=== PATIENT | male | born 1970 | race Caucasian/White ===

== ENCOUNTER 2017-08-24 19:27 | Emergency (ER) | payer BC, SELFPAY ==
[2017-08-24 19:28] VITALS: BP 138/93; PULSE 89; RESP 16; TEMP 36.2; BMI 25.0
--- NOTE | 2017-08-24 19:38 | ED.DCSUM_ITS ---
- ER Visit Summary Date of Service: 08/24/17 Chief Complaint: Laceration left thumb History of Present Illness: The patient is a 47 M who is right-handed. He presents with injury to his left thumb. This occurred while using a grinding wheel at home. Last tetanus shot was 8 years ago. He denies paresthesia, anesthesia motor weeks. He has no other complaints. Physical Examination: There is a 2 cm laceration radial side left thumb over the proximal phalanx. Capillary refill is normal. Sensation is normal. There is no subungual hematoma. He is able to extend and flex the thumb. He is able to AB duct and adductor thumb. Test Results: None Emergency Department Course and Treatment: The laceration was excised 1% lidocaine. The wound was cleansed and irrigated. Using 5-0 Ethilon simple interrupted sutures were placed. Treatment Plan: Clean wound with peroxide and Q-tip 3 times a day then apply bacitracin ointment. Sutures out in 10 days. Disposition: Discharged to home with spouse in stable improved condition Impression: 2.0 cm laceration left thumb initial encounter This note was generated with [employer] dictation software. It may contain incorrect words, spelling, and punctuation that were not noted in review of the chart prior to signing ED Disposition - Plan for ED Patient: Disposition: Home or Assisted Living Chief Complaint: Laceration Instructions: ED Laceration Hand Referrals: Adan Diaz MD [Primary Care Provider] - 7 Days for suture removal Additional Instructions: Clean wound with peroxide and Q-tip 3 times a day then apply bacitracin ointment
== END 2017-08-24 20:52 | disposition home or self-care (01) ==
PROVIDERS: Emergency Provider Emergency Medicine; Family Provider Family Medicine; PCP Family Medicine
DX: S61.012A Laceration without foreign body of left thumb without damage to nail, initial encounter (principal); W31.89XA Contact with other specified machinery, initial encounter; Y93.9 Activity, unspecified; Y92.9 Unspecified place or not applicable; Y99.9 Unspecified external cause status
CPT/HCPCS: 12001; 99284

== ENCOUNTER 2023-08-07 18:09 | Emergency (ER) | payer BC, SELFPAY ==
[2023-08-07 18:09] VITALS: BP 120/99; PULSE 108; RESP 19; TEMP 36.1; O2SAT 99; BMI 25.8
[2023-08-07 19:00] VITALS: BP 140/97; PULSE 99; RESP 16; O2SAT 98
[2023-08-07 19:08] LABS: Absolute Lymphocyte Count 0.56 X10^3/uL (0.83-4.51); Absolute Neutrophil Count 11.4 X10^3/uL (2.0-7.7); Basophil# 0.04 X10^3/uL; Basophil% 0.3 % (0-1); Eosinophil# 0.15 X10^3/uL; Eosinophils% 1.2 % (0-5); Hematocrit 48.6 % (40-54); Lymphocyte # 0.56 X10^3/ul (0.83-4.51); Lymphocyte % 4.4 % (19-41); Mean Corp Hgb Conc 32.9 g/dL (32-36); Mean Corpuscular Hgb 27.3 pg (27.0-32.0); Mean Corpuscular Volume 82.9 fL (80-94); Monocyte# 0.44 X10^3/uL; Monocyte% 3.5 % (0-10); NRBC Flagged by Analyzer 0 % (0-5); Neutrophil # 11.37 X10^3/uL (2.7-7.7); Neutrophil % 90.3 % (47-70); POSITIVE DIFFERENTIAL YES; Platelet Count 317 K/mm3 (150-450); RBC Distribution Width CV 12.9 % (11.6-14.6); RBC Distribution Width SD 38.8 fl (35.1-43.9); Red Blood Count 5.86 M/mm3 (4.6-6.2); White Blood Count 12.6 K/mm3 (4.4-11.0)
[2023-08-07] MEDS: 0.9% Normal Saline (1000mL) 1,000 ML 1000 ML IV (19:15)
[2023-08-07 19:16] LABS: Differential Indicated SCAN CRITERIA MET
[2023-08-07 19:23] LABS: Bacteria 0 SEEN /hpf (None Seen); Red Blood Cells-Urine 0 SEEN /hpf (0-5); White Blood Cells 0 SEEN /hpf (0-5)
--- NOTE | 2023-08-07 19:23 | CT_ITS ---
INDICATION: PAIN EXAMINATION: CT Abdomen And Pelvis W/ Contrast Injection TECHNIQUE: Helically acquired images were obtained of the abdomen and pelvis after IV contrast. A radiation dose optimization technique was used for this scan. IV Contrast dosage and agent: IV 100mL [id number] Oral contrast: None. COMPARISON: None. FINDINGS: Visualized lung bases: Unremarkable Liver: Unremarkable Gallbladder: Unremarkable Spleen: Unremarkable Pancreas: Unremarkable Adrenal Glands: Unremarkable Kidneys: Scattered too small to characterize subcentimeter hypodensities bilaterally. Vasculature: Unremarkable GI Tract: Unremarkable Lymphadenopathy: None Peritoneum: No ascites. There is an ill-defined mesenteric mass like conglomerate in the midline root of the mesentery with evelin attenuation of the fat and containing small soft tissue nodes. Bladder: Mild circumferential bladder wall thickening. Reproductive organs: The prostate is mildly enlarged. Bones/Soft tissues: Mild scattered degenerative changes of the visualized spine. Small bilateral fat-containing inguinal hernias. 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 Recommend follow-up CT in 3 months and/or PET/CT to rule out lymphoma as it can have a similar appearance. Mild circumferential bladder wall thickening. Correlate with urinalysis for possible cystitis. Cannot rule out malignancy. Electronically Signed: Matthew Agarwal MD at 21:03 EDT ,
[2023-08-07 19:26] LABS: Color, Urine Yellow (Yellow); Glucose, Dipstick Normal (Normal); Ketone-Dipstick 50 mg/dl (Negative); Leukocyte Esterase-Dipstick Negative /ul (Negative); Nitrite-Dipstick Negative (Negative); Occult Blood-Urine 10 /ul (Negative); Protein-Dipstick 15 mg/dl (Negative); Urine Bilirubin Dipstick Negative (Negative); Urine Clarity Clear (Clear); Urine Urobilinogen Normal (Normal)
[2023-08-07] MEDS: Ondansetron 4 MG/2 ML Vial IV ×2 (19:28→22:02)
[2023-08-07 19:31] LABS: AST(SGOT) 38 U/L (15-37); Alanine Aminotransfer ALT/SGPT 51 U/L (16-61); Albumin, Serum 4.4 g/dL (3.2-5.0); Alkaline Phosphatase 145 U/L (45-117); Anion Gap 6 (5-15); BUN 18 mg/dL (7-18); BUN/Creat Ratio 13.7 RATIO (10-20); Bilirubin, Direct 0.42 mg/dL (0.00-0.30); Calcium,Total 9.7 mg/dL (8.5-10.1); Chloride 108 mmol/L (98-107); Creatinine, Serum 1.31 mg/dL (0.70-1.30); EST Glomerular Filtration Rate 61 mL/min (>60); Est Glom Filt Rate - Afr Amer 74 mL/min (>60); Estimated Creatinine Clearance 62.37 ml/min; Globulin 4.2 g/dL (2.2-4.2); Glucose 132 mg/dL (74-106); Lipase 21 U/L (13-75); Potassium 4.1 mmol/L (3.5-5.1); Protein, Total 8.6 g/dL (6.4-8.2); Sodium Level 138 mmol/L (136-145)
--- NOTE | 2023-08-07 19:32 | ED.VIS.GI ---
HPI HPI - GI History of Present Illness Chief Complaint: Abd Pain Narrative Narrative: 53-year-old male presenting with abdominal pain, nausea, vomiting, diarrhea. Patient states he has had this issue several times and actually saw a GI doctor via telehealth in October. He states from time to time he will get some epigastric pain and nausea and bloating. This is what happened overnight. He ate steak with blue cheese last night at about 7:30 PM and about midnight to 1:00 started having epigastric pain and nausea. He states that a lot of diarrhea. Patient has only history of appendectomy as a child. No other abdominal surgeries. No history of C. difficile or inflammatory bowel disease. No urinary complaints. Patient states he is not a drinker and does not smoke. He does admit to drinking about 4 Pepsi's a day. Patient states his pain is about a 5/5 and has been constant. He was able to eat some cheese today and hold this down and he also had a Pepsi. He states he is passing flatus but actually every time he does he has diarrhea. No fever at home. No history of upper endoscopy or colonoscopy. No black or bloody stools. PFSH PFS Home Medications NK 08/24/17 [History Last Taken Unknown] Allergy/AdvReac Type Severity Reaction Status Date / Time No Known Allergies Allergy Verified 08/07/23 18:11 Surgical History Hx of appendectomy Social History Smoking Status: Former smoker ROS ROS ED Constitutional Constitutional ED: Denies chills, fever(s) or sweats Eyes Eyes: Denies blurry vision or change in vision ENT ENT ED: Denies ear pain or sore throat Cardiovascular Cardiovascular: Denies chest pain, palpitations or racing heartbeat Respiratory/Chest Respiratory/Chest: Denies cough, dyspnea or sputum Gastrointestinal Gastrointestinal: Reports abdominal pain, diarrhea and nausea; Denies constipation Genitourinary Genitourinary ED: Denies dysuria, hematuria or urinary frequency Musculoskeletal Musculoskeletal: Denies arthralgias, myalgias or neck pain Integumentary Denies abscess, Abrasions or rash Neurologic Neurologic: Denies headache(s), paresthesias or weakness Psychiatric Psychiatric: Denies anxiety, depression, suicidal ideation or suicidal thoughts Endocrine Endocrinology: Denies polydipsia or polyuria EXAM Physical Exam Const Vital Signs: 08/07/23 18:09 08/07/23 19:00 08/07/23 21:00 Temperature 97 F L Temperature Source Temporal Pulse Rate 108 H 99 80 Respiratory Rate 19 H 16 16 Blood Pressure 120/99 H 140/97 H 135/88 H Blood Pressure Mean 106 111 103 Pulse Ox 99 98 98 Oxygen Delivery Method Room Air Room Air Room Air 08/07/23 22:04 Temperature Temperature Source Pulse Rate 101 H Respiratory Rate 16 Blood Pressure 115/69 Blood Pressure Mean 84 Pulse Ox 99 Oxygen Delivery Method Room Air Positive well nourished General Appearance ED: NAD; Negative for pallor HEENT Reports moist mucous membranes normocephalic and atraumatic Eyes PERRL and EOMs intact bilaterally Neck no lymphadenopathy Resp normal respiratory effort Cardio regular rate and regular rhythm GI GI Narrative: Negative Crowder sign. Auscultation: hyperactive bowel sounds Palpation: tender epigastric and periumbilical Back/Spine no CVA tenderness Neuro CN's II-XII intact bilaterally Psych mental status grossly normal Skin no wounds General Skin Exam: Negative for jaundice or pallor MDM MDM MDM Narrative Medical decision making narrative: Patient presenting with right flank pain. Differential includes colitis, diverticulitis, gastritis, pancreatitis, acute cholecystitis, constipation, appendicitis, UTI, pyelonephritis, calculi, ureteral calculi, obstruction, malignancy, dehydration, electrolyte abnormalities. Patient initially declined medication except for Zofran. He was given IV fluids. CBC was obtained and shows a leukocytosis of 12.6. Hemoglobin 16.0. Creatinine elevated at 1.31. Electrolytes are normal. Total bilirubin 2.10, direct bilirubin 0.42, AST 38, alk phos 145. Lipase 21. Urinalysis negative for infection. Patient initially given Zofran and still continued nausea but declined analgesia or antiemetics. I obtained a CT of the abdomen pelvis which shows a concern for a mass in the mesentery interpreted as sclerosing mesentery right S. Discussed with general surgery on-call and GI and they recommended transfer as patient will likely need a biopsy of this and is likely cancerous in nature. Patient then decided he would take some morphine and Zofran. We tried to transfer to [facility] however there is no beds. [facility] has no beds. We discussed the case with transfer line for [facility] and I have not received a call back at 10:58 PM. Patient will be signed out to incoming ED provider for monitoring until placement can occur. Impression: 1. Sclerosing mesenteritis 2. Elevated bilirubin 3. Nausea/vomiting 4. Diarrhea Lab Data Attestation: I reviewed the patient's lab results. Labs: Laboratory Results - last 24 hr 08/07/23 08/07/23 19:01 19:14 WBC 12.6 H RBC 5.86 Hgb 16.0 Hct 48.6 MCV 82.9 MCH 27.3 MCHC 32.9 RDW Std Deviation 38.8 RDW Coeff of Jose 12.9 Plt Count 317 MPV 9.0 Immature Gran % (Auto) 0.300 Neut % (Auto) 90.3 H Lymph % (Auto) 4.4 L Mccreary % (Auto) 3.5 Eos % (Auto) 1.2 Baso % (Auto) 0.3 Absolute Neuts (auto) 11.4 H Absolute Lymphs (auto) 0.56 L Nucleated RBC % 0 Differential Comment SEE COMMENT Platelet Estimate ADEQUATE RBC Morphology N CHROM Anisocytosis RARE Sodium 138 Potassium 4.1 Chloride 108 H Carbon Dioxide 24.0 Anion Gap 6 BUN 18 Creatinine 1.31 H Estim Creat Clear Calc 62.37 Est GFR (MDRD) Af Amer 74 Est GFR (MDRD) Non-Af 61 BUN/Creatinine Ratio 13.7 Glucose 132 H Calcium 9.7 Total Bilirubin 2.10 H Direct Bilirubin 0.42 H AST 38 H ALT 51 Alkaline Phosphatase 145 H Total Protein 8.6 H Albumin 4.4 Globulin 4.2 Lipase 21 Urine Color Yellow Urine Clarity Clear Urine pH 5.0 Ur Specific [place] 1.020 Urine Protein 15 H Urine Glucose (UA) Normal Urine Ketones 50 H Urine Occult Blood 10 H Urine Nitrite Negative Urine Bilirubin Negative Urine Urobilinogen Normal Ur Leukocyte Esterase Negative Urine RBC 0 SEEN Urine WBC 0 SEEN Ur Squamous Epith Cells 0-5 SEEN Urine Bacteria 0 SEEN Urine Mucus 1+ Radiography Diagnostic Testing: Clinical Impression(s) from Imaging Studies Abdomen/Pelvis CT 08/07/23 19:23 IMPRESSION: 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 Recommend follow-up CT in 3 months and/or PET/CT to rule out lymphoma as it can have a similar appearance. Mild circumferential bladder wall thickening. Correlate with urinalysis for possible cystitis. Cannot rule out malignancy. Electronically Signed: Matthew Agarwal MD at 21:03 EDT , Discharge Plan Triage Chief Complaint: Abd Pain ED Provider: Anthony Bonilla Dx/Rx/DC Orders Prescriptions: No Action NK Primary Care Provider: Tena Beyer NP Referrals: Tena Beyer HOT END OPERATOR, HOT END OPERATOR-C [Primary Care Provider] -
[2023-08-07 19:49] LABS: Platelet Estimate ADEQUATE (ADEQ)
[2023-08-07 19:50] LABS: Anisocytosis RARE; Red Cell Morphology N CHROM NORMAL (NORM C&C)
[2023-08-07 19:52] LABS: Mucous, Urine 1+ /hpf (<or=2+); Squamous Epithelial Cells - UA 0-5 SEEN /hpf (0-5)
[2023-08-07] MEDS: 0.9% Normal Saline (1000mL) 1,000 ML 999 ML IV (20:03)
[2023-08-07 21:00] VITALS: BP 135/88; PULSE 80; RESP 16; O2SAT 98
[2023-08-07] MEDS: Morphine 4 MG/ML Syringe IV (22:02)
[2023-08-07 22:04] VITALS: BP 115/69; PULSE 101; RESP 16; O2SAT 99
[2023-08-07 23:44] VITALS: BP 133/87; PULSE 72; RESP 16; TEMP 36.8; O2SAT 100
== END 2023-08-07 23:58 | disposition home or self-care (01) ==
PROVIDERS: Emergency Provider Student in an Organized Health Care Education/Training Program; PCP Nurse Practitioner; Visit Provider Student in an Organized Health Care Education/Training Program
DX: K65.4 Sclerosing mesenteritis (principal); R17 Unspecified jaundice; Z87.891 Personal history of nicotine dependence
CPT/HCPCS: 74177; 80048; 80076; 81001; 83690; 85025; 96361; 96374; 96375; 96376; 99283; J7030; Q9967; A4216; J2405